=== PATIENT | female | born 1985 | race Caucasian/White ===

== ENCOUNTER 2024-06-29 11:46 | Emergency (ER) | payer SELFPAY ==
[~2024-06-29] VITALS: Ht 167.6 cm; Wt 56.2 kg
[2024-06-29 11:51] VITALS: BP_SYST 130; PULSE 111; RESP 18; TEMP 98.3; O2SAT 98
[2024-06-29] MEDS: KETOROLAC TROMETHAMINE 60 MG/2 ML VIAL IM ONE (12:27)
[2024-06-29] MEDS ORDERED: IBUP-1969 PO (13:16)
[2024-06-29] MEDS ORDERED: HYDR-3917 PO (13:16)
[2024-06-29 13:28] VITALS: BP_SYST 130; PULSE 111; RESP 18; TEMP 98.3; O2SAT 98
== END 2024-06-29 13:28 | disposition home or self-care (01) ==
LOC: SED 11:46
DX: R10.9 Unspecified abdominal pain (principal); R07.81 Pleurodynia
CPT/HCPCS: 99283; 71100; 81025; 96372; J1885